=== PATIENT | male | born 1975 | race Caucasian/White ===

== ENCOUNTER 2019-09-19 03:56 | Observation (INO) | payer OTHER, SELFPAY ==
[2019-09-19] VITALS (8 sets, daily range): BP systolic 132–163; BP diastolic 91–108; PULSE 70–102; RESP 16–18; TEMP 36.3–36.4; O2SAT 97–99; BMI 27.6; BMI 27.0
--- NOTE | 2019-09-19 04:19 | CT_ITS ---
STUDY: CTA OF THE BRAIN REASON FOR EXAM: Male, 43 years old. LT EYE AND FACE PAIN X 2 DAYS,HEADACHE AND BLURRY VISION -- HX:SKIN CANCER RADIATION DOSAGE (If Supplied By Facility): CTDIvol = ( 25.48 ) mGy, DLP = ( 1261.86 ) mGycm TECHNIQUE: CT angiography was performed with a multi-detector CT scanner. Data acquisition was obtained from the skull base through the vertex following intravenous administration of ISOVUE 370 100ML. MIP images were reconstructed from the axial data set. Post-processing of the angiographic images was performed, with multiplanar reformation and 3D reconstruction. Should be noted that the contrast for the CT angiogram head is limited by the timing of the procedure. The contrast is primarily located within the vessels. Individualized dose optimization techniques were used for this CT. COMPARISON: None. FINDINGS: Normal bilateral petrous carotid arteries. Normal right cavernous carotid artery with a normal supraclinoid bifurcation. Normal left cavernous carotid artery with a normal supraclinoid bifurcation. Normal right A1 segments of the anterior cerebral artery. Normal left A1 segments of the anterior cerebral artery. Normal intact anterior communicating artery (ACOM). Normal bilateral A2 segments of the anterior cerebral arteries. Normal right M1 and M2 segments of the middle cerebral arteries, with a normal M1 bifurcation. 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 Normal left M1 and M2 segments of the middle cerebral arteries, with a normal M1 bifurcation. Normal right posterior communicating artery (PCOM). Normal left posterior communicating artery (PCOM). There is a small atretic right vertebral artery with a dominant left vertebral artery. Normal basilar artery with a normal basilar bifurcation. The visualized bilateral superior cerebellar (SCA) arteries are normal. Normal bilateral P1, P2 and visualized P3 segments of the posterior cerebral arteries. There is no demonstrated aneurysm of the [place]. There is a nonspecific rightward gaze with slight increase in the enhancement of the medial rectus muscles. This may be positional. The noncontrasted images demonstrate a minimal atrophy. There is no visualized focal area of edema or hemorrhage. There is a visualized centrally located focus of possible scarring or subcutaneous skin thickening in the frontal region. This is nonspecific. There is a left-sided maxillary mucosal retention cyst. There is a left-sided middle turbinate yaya bullosa. CT/CTA Head W/WO Contrast IMPRESSION: No visualized aneurysmal dilatation or area of stenosis. No evidence of blush of visualized enhancement. Duplicated or accessory right-sided MCA artery. There is nonspecific slight increased density of the medial rectus wall muscles with the eyes and a rightward gaze. No visualized enhancing retroconal or extraconal mass. Nonspecific focal thickening of the soft tissues of the frontal region midline. This may represent scarring and/or soft tissue variant., See image 24 axial views. Given the clinical history recommend consideration for follow-up MRI/MRA which may be helpful for further characterization of the optic canal and nerve bundles as well as the variant anatomy, when appropriate Electronically Signed: Ya Galloway MD at 5:47 EDT Tel , Service support ,
--- NOTE | 2019-09-19 04:22 | ED.DCSUM_ITS ---
History of Present Illness Chief Complaint: Other, Pain/Inj Informant: Patient Narrative: Patient stated approximately 4 days ago he woke up in the morning and had left- sided headache. It was in the temporal area. At the same time he had blurred vision in the left eye. He also stated senior living in his vision across the middle he has a black line that goes across. He stated that the headache is been intermittent and yesterday he did have a headache but the visual difficulty and blurred vision has persisted. He is never had this before and this eye. He has had migraines in the past with blurred vision but nothing that has lasted this long. In his opposite eye he had his tear duct removed as he had basal cell carcinoma with reconstruction done. However his left eye has always been good. He does not wear glasses or contacts. Normally he can see quite well out of his left eye. He denies any pain in the left eye. He also stated that the pain in his left taoism radiated down into his left cheek. He has not noticed any facial weakness or other stroke symptoms. He denies any pain in the back of his head. Current severity is moderate to severe. He can see well out of his right eye but not his left. He has been using Tylenol for the intermittent headache. No history of temporal arteritis. No injury to his face. Past Medical History - Allergies and Home Meds Allergies/Adverse Reactions: Allergies aspirin Adverse Reaction (Verified 09/19/19 04:01) Other Primary Care Physician: Esme Nunn DO [Primary Care Provider] - Prior records reviewed: Yes Past Medical History: - - Is a cell carcinoma forehead Surgical History: - - Basal cell carcinoma resection Smoking Status: Current every day smoker Alcohol: None Drugs: None Review of Systems General: Denies: Chills, Fever, Sweats Eyes: Reports: Visual changes - left, Blurred vision - left. Denies: Visual changes - bilaterally, Diplopia ENT: Denies: Rhinorrhea, Sore throat Cardiovascular: Denies: Chest pain, Palpitations Respiratory: Denies: Dyspnea, Cough, Dyspnea on exertion Gastrointestinal: Denies: Abdominal pain, Nausea, Vomiting, Diarrhea, Melena, Hematochezia Genitourinary: Denies: Dysuria, Hematuria, Frequency Musculoskeletal: Denies: Back pain, Extremity Pain Skin: Denies: Rash, Wounds Neurological: Denies: Headache, Weakness, Numbness Physical Exam Vital Signs/Narrative: Vital Signs Temp Pulse Resp BP Pulse Ox 09/19/19 03:58 97.4 F L 102 H 16 133/107 H 98 General: Well nourished, Well developed, No Acute Distress Head: Normocephalic, Atraumatic, - - No tenderness to his temporal artery. Negative for: Tenderness Eyes: Perrl, EOMI, - - Conjunctiva and sclera appear normal. Consensual reflexes ocular are normal. Attempts to see the back of his retina appear to show normal blood vessels. This is difficult however due to miosis. I do not appreciate a retinal detachment. Visual acuity is 20/25 bilateral and 20/25 on the right. It is 20/200 on the left.. Negative for: Pale conjunctiva, Scleral icterus ENT: Moist mucous membranes, No rhinorrhea Neck: Supple, Nontender Cardiovascular: Regular rate, Regular rhythm, No murmurs Respiratory: No distress, CTA bilaterally, Chest nontender Abdomen: Soft, Nontender, Nondistended, Normal bowel sounds Back: Nontender, Normal Inspection Extremities: Nontender, No edema Skin: Normal color, No rash Neurological: Alert, Oriented x3, Normal Strength, Normal Sensation, - - Patient's facial exam normal sensation and strength. No evidence of facial palsy.. Negative for: Cranial nerves II-XII grossly intact Psychological: Normal affect, Normal Mood Diagnostic/Tx/Re-eval - Medical Decision Making Established patient given IV fluids. Lab work and CT angio with and without contrast obtained of the head.. Lab work showed nothing remarkable. CBC BMP ESR all normal. CT Vanessa of the head with and without contrast showed nothing acute. 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 No evidence of stroke pattern. Patient was treated for possible complex migraine with Compazine Toradol and Benadryl patient was also placed on high flow oxygen as this may be a cluster headache wi th ocular symptoms. Patient's case was discussed with neurology. Neurology felt this could be optic neuritis versus complex migraine versus versus infectious ideology. I also instilled tetracaine in the left eye and use fluorescein with no uptake. No evidence of dendritic ulceration. Case was also discussed with ophthalmology Dr. Huynh. He felt he could see the patient in the office if discharged however neurology would like to do an inpatient work- up. Patient discussed with the hospitalist. We will do an inpatient MRI of the brain and orbits. Patient is in agreement with this. ED Disposition - Plan for ED Patient: Disposition: Acute Care [facility] Diagnosis: Blurred vision, left eye, Headache
[2019-09-19] MEDS: 0.9% Normal Saline 1,000 ML 1000 ML IV (04:40)
[2019-09-19 04:54] LABS: Absolute Lymphocyte Count 3.03 X10^3/uL (0.83-4.51); Absolute Neutrophil Count 4.8 X10^3/uL (2.0-7.7); Basophil# 0.05 X10^3/uL; Basophil% 0.5 % (0-1); Eosinophil# 0.41 X10^3/uL; Eosinophils% 4.4 % (0-5); Hematocrit 47.6 % (40-54); Hemoglobin 15.8 g/dL (13.0-16.5); Lymphocyte # 3.03 X10^3/ul (4.0); Lymphocyte % 32.6 % (19-41); Mean Corp Hgb Conc 33.2 g/dL (32-36); Mean Corpuscular Volume 99.4 fL (80-94); Mean Platelet Vol. 9.3 fl (6.2-12.0); Monocyte# 0.97 X10^3/uL; Monocyte% 10.4 % (0-10); NRBC Flagged by Analyzer 0 % (0-5); Neutrophil # 4.81 X10^3/uL (2.7-7.7); Neutrophil % 51.8 % (47-70); Platelet Count 227 K/mm3 (150-450); RBC Distribution Width CV 12.1 % (11.6-14.6); RBC Distribution Width SD 44.8 fl (35.1-43.9); Red Blood Count 4.79 M/mm3 (4.6-6.2); White Blood Count 9.3 K/mm3 (4.4-11.0)
[2019-09-19 05:09] LABS: Anion Gap 5 (5-15); BUN 21 mg/dL (7-18); BUN/Creat Ratio 22.9 RATIO (10-20); Calcium,Total 8.5 mg/dL (8.5-10.1); Chloride 108 mmol/L (98-107); Creatinine, Serum 0.92 mg/dL (0.70-1.30); EST Glomerular Filtration Rate 95 mL/min (>60); Est Glom Filt Rate - Afr Amer 115 mL/min (>60); Estimated Creatinine Clearance 113.64 ml/min; Glucose 144 mg/dL (74-106); Potassium 3.9 mmol/L (3.5-5.1); Sodium Level 141 mmol/L (136-145)
[2019-09-19 05:13] LABS: Erythrocyte Sedimentation Rate 4 mm/hr (0-15)
[2019-09-19] MEDS: Ketorolac 30 MG/ML Syringe IV (06:15)
[2019-09-19] MEDS: proCHLORPERazine 10 MG/2 ML Vial IV (06:58)
[2019-09-19] MEDS: DiphenhydrAMINE 50 MG/ML Syringe 25 MG IV (06:58)
--- NOTE | 2019-09-19 07:07 | NURSING ---
DR WHELAN FOR DR ZAVALA
--- NOTE | 2019-09-19 07:07 | PCM.HP.STD ---
Problem List (1) Headache Status: Acute Qualifiers: Headache type: unspecified Headache chronicity pattern: unspecified pattern Intractability: not intractable Qualified Code(s): R51 - Headache (2) Blurred vision, left eye Status: Acute (3) Hyperglycemia Status: Acute (4) History of migraine Status: Chronic (5) Cigar smoker Status: Chronic History of Present Illness Date of Admission: 09/19/19 Chief Complaint: Headache, L eye vision changes The patient is a 43 y/o M w/ PMHx: GERD, Hx Migraines, Hx basal cell carcinoma requiring R eye lacrimal duct resection and reconstruction who presents to the [facility] ED on 09/19/19 with history of onset ~ 4 days prior, following awakening, intermittent L sided headache behind his L eye and in the temporal region described as both throbbing and a stabbing rated 8 out of 10 in severity at its worse lasting sometimes hours to days although currently denies significant left-sided temporal headache at this time with associated ongoing L eye blurred vision and specifically noting a brown-black line going chcf horizontally across his vision as well as pain from the L temporal region down to his L cheek region. He notes normally appropriate vision. He denies having had these symptoms prior with migraine. He does currently admit to both light and sound sensitivity which he does state he does routinely have with his migraines. He states normally his symptoms for migraines are primarily right-sided. 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 ED physician consulted [facility] Dr. Hines who recommended admission with IAN, serum KEATON, ESR, Lyme Sheri, c-ANCA, p-ANCA, RPR, HIV, TSH, MRI of the brain with and without contrast, MRI of the orbits with fat suppression with and without and if imaging concerning for herpes ophthalmicus initiate acyclovir, if work-up consistent with optic neuritis encourage continued Solu-Medrol therapy with transition to oral prednisone therapy with a total of 1 g daily x3 days followed by a 10-day oral prednisone taper and also discussed case with Dr. Huynh (ophthalmology) who noted intention for follow-up outpatient at discharge. Neurology felt that patient's presentation was more consistent with a possible optic neuritis versus a complex migraine. In the ED prior to admission ED physician also instilled tetracaine into the left eye and visualized the eye with fluorescein with no uptake identified and no evidence of any dendritic ulcerations. Past Medical History Past Medical History (Chronic Problems): Chronic Problems History of migraine (Chronic) Cigar smoker (Chronic) Allergies aspirin Adverse Reaction (Verified 09/19/19 04:01) Other Home Medications: Ambulatory Orders Medication Instructions Recorded NK 09/19/19 Surgical History: - - Basal cell carcinoma resection face with right lacrimal duct resection concurrently. Psychiatric History: No pertinent psych hx Lives: Spouse/ Significant Other Smoking Status: Current every day smoker - Patient with ongoing 1 to 2 cigar smoking daily. Tobacco Use: Cigars Alcohol: None Drugs: None - *Family History Maternal History Items: - - Patient denies any market maternal or paternal family history including heart disease, diabetes or cancer. Paternal History Items: - - Patient denies any market maternal or paternal family history including heart disease, diabetes or cancer. Review of Systems Constitutional: Reports: Anorexia, Malaise, Weakness, Fatigue. Denies: Chills, Fever, Weight Change Eyes: Reports: Blurred vision HEENT: Reports: Head Aches. Denies: Sinus Congestion, Sinus Drainage Cardiovascular: Denies: Chest Pain, Chest Pressure, Chest Tightness, Light Headedness, Orthopnea, Palpitations, Syncope Respiratory: Denies: Cough, Shortness of Breath, Shortness of breath at rest, Shortness of breath upon exertion, Sputum production Gastrointestinal: Denies: Abdominal Pain, Diarrhea, Nausea, Vomiting Genitourinary: Denies: Dysuria Musculoskeletal: Denies: Joint Pain, Joint Tenderness, Muscle pain Skin: Denies: Rash, Wounds Neurological: Reports: Blurred vision. Denies: Focal weakness, Numbness, Tingling Psychiatric: Denies: Anxiety, Depression, Homicidal Ideations, Suicidal Ideations Hematologic/ Lymphatic: Denies: Easy Bruising, Easy Bleeding VTE Information - Inpt Only VTE Present on Admission: No VTE Mechan Device Prophylaxis: SCD's VTE Pharm Prophylaxis ordered?: Yes Patient Problems: Active and Suspected Problems Blurred vision, left eye (Acute) Headache (Acute) Hyperglycemia (Acute) Subjective: Patient seated upright in the ED bed, fatigued appearance, no acute distress, denies any current migraine but noticed ongoing left eye vision blurriness and horizontal line across his field of vision. Objective: Physical Examination: General: awake, alert, oriented x 3 and cooperative, seated upright in the ED bed in no apparent distress. Skin: normal color, turgor, no icterus, cyanosis. HEENT: AT/NC, EOMI, PERRLA, peripheral painting of vision appear intact, left eye vision deficit reporting blurry vision with visual acuity 20/25 bilateral and 20/25 on the right and 20/20 on the left, mildly dry MM, no carotid bruits or JVD noted. Lungs: CTA bilaterally, moderate effort, mild decrease BL bases, no rales, ronchi or wheezing. Heart: Regular rate and rhythm; no gallop, rub audible. Abdomen: soft, overweight, NTTP, ND, normal BS, no HSM. Extremities: no cyanosis, clubbing, or edema. Neurological: patient awake, alert, oriented as noted; cognitive function appears baseline intact; pupils equally reactive to light and accomodation; cranial nerves II-XII grossly normal except noted vision deficits, moving all 4 extremities, no focal deficits, strength preserved, normal kebshw-nd-swel and [id number], negative Babinski. Psychiatric: affect appears normal, no acute evidence of depressive or anxiety feelings. - Physical Exam Vitals/I&O's: Vital Signs Temp Pulse Resp BP Pulse Ox 97.4 F L 70 16 139/101 H 99 09/19/19 03:58 09/19/19 06:57 09/19/19 06:57 09/19/19 06:57 09/19/19 06:57 Oxygen Delivery Method Room Air Weight: 203 lb 7.787 oz Body Mass Index (BMI) 27.6 Intake and Output for Last 24 Hours 09/17/19 09/18/19 09/19/19 23:59 23:59 23:59 Intake Total 1000 / 1000 Balance 1000 / 1000 Laboratory Results 09/19/19 04:40: WBC 9.3, RBC 4.79, Hgb 15.8, Hct 47.6, MCV 99.4 H, MCH 33.0 H, MCHC 33.2, RDW Std Deviation 44.8 H, RDW Coeff of Baakri 12.1, Plt Count 227, MPV 9.3, Immature Gran % (Auto) 0.300, Neut % (Auto) 51.8, Lymph % (Auto) 32.6, [place] % (Auto) 10.4 H, Eos % (Auto) 4.4, Baso % (Auto) 0.5, Absolute Neuts (auto) 4.8, Absolute Lymphs (auto) 3.03, Nucleated RBC % 0, ESR 4 09/19/19 04:40: Sodium 141, Potassium 3.9, Chloride 108 H, Carbon Dioxide 28.0, Anion Gap 5, BUN 21 H, Creatinine 0.92, Estim Creat Clear Calc 113.64, Est GFR (MDRD) Af Amer 115, Est GFR (MDRD) Non-Af 95, BUN/Creatinine Ratio 22.9 H, Glucose 144 H, Calcium 8.5 Assessment/Plan All Active Problems Blurred vision, left eye (Acute) Headache (Acute) Hyperglycemia (Acute) The patient is a 43 y/o M w/ PMHx: GERD, Hx Migraines, Hx basal cell carcinoma requiring R eye lacrimal duct resection and reconstruction who presents to the [facility] ED on 09/19/19 with history of onset ~ 4 days prior, following awakening, intermittent L sided headache behind his L eye and in the temporal region described as both throbbing and a stabbing rated 8 out of 10 in severity at its worse lasting sometimes hours to days although currently denies significant left-sided temporal headache at this time with associated ongoing L eye blurred vision and specifically noting a brown-black line going chcf horizontally across his vision as well as pain from the L temporal region down to his L cheek region. He notes normally appropriate vision. 1. Left eye vision changes, headache concerning for possible Acute optic neuritis versus Acute complex migraine with history of migraines, less likely acute CVA: Will admit to PCU, MRI of the brain with and without contrast, MRI of the orbits with fat suppression with and without, will request ECHO however if no evidence CVA will d/c, per Neurology request will obtain IAN, serum KEATON, ESR (will obtain CRP also), Lyme Sheri, c-ANCA, p-ANCA, RPR, HIV, TSH, if imaging concerning for herpes ophthalmicus initiate acyclovir, given importance of steroid initiation if optic neuritis and concern for complex migraine, will start solumedrol (if work-up consistent with optic neuritis will plan solumedrol 1 g daily x3 days followed by a 10-day oral prednisone taper), would plan Dr. Huynh (ophthalmology) outpatient follow-up at discharge if appropriate. Given concern for possible migrainous etiology will hold narcotic therapy give this may exacerbate migraine, initiate IV VPA 500mg Q6 hours, IV Toradol 30mg q 8 hours x 5 doses and PO Neurontin 100mg TID with meals. Given MRI imaging pending although lower suspicion for acute CVA in interim we will continue PT/OT/Speech/Nutrition evaluation per protocol, allow permissive HTN, maintain on plavix, add statin w/ AM FLP, fall precautions. Will obtain hemoglobin A1c, magnesium level, TSH level. 2. Hyperglycemia: Admission glucose 144, hemoglobin A1c pending as noted. 3. Tobacco Abuse: Encouraged cessation, inpatient consultation per RT, NR if desired. 4. GERD: We will maintain on famotidine. 5. Hx basal cell carcinoma: s/p R eye lacrimal duct resection and reconstruction, noted to have bone performed at [facility], [facility]. 6. DVT prophylaxis: SCDs, Lovenox. Inpatient E&M: 01304 Init Hosp L3
--- NOTE | 2019-09-19 07:16 | NURSING ---
PCU LT OCULAR BLURRED VISION, LT HEADACHE WHITE
--- NOTE | 2019-09-19 09:12 | ECHOD_ITS ---
Reason For Study: TIA/CVA Procedure This was a 2D Doppler, Color Flow transthoracic echocardiogram. Exam performed portable in patient room. Left Ventricle Normal LV size. Left ventricular systolic function is normal. The estimated ejection fraction is 55 %. Stage 1 diastolic dysfunction. No regional wall motion abnormalities noted. Right Ventricle Normal RV size. Normal systolic function. Atria Normal left atrium. Normal right atrium. Bubble contrast study negative for right to left interatrial shunt. Tricuspid Valve Normal tricuspid valve. Mild tricuspid valve insufficiency. Great Vessels Normal aortic root. The pulmonary artery is normal size. Normal inferior vena cava. Pericardium/Pleural No pericardial effusion. Medication Performed a rapid injection of agitated mix of 9 cc saline and 1cc air to assess for atrial septal defect. MMode/2D Measurements & Calculations LVIDd: 5.0 cm IVSd: 0.95 cm Ao root diam: 3.1 cm LVIDs: 3.3 cm LVPWd: 0.98 cm RVDd: 2.6 cm FS: 34.2 % LAV(MOD-bp): 57.3 ml LA dimension(2D): 3.2 cm LA A4 area: 17.1 cm2 LAV(MOD-bp) Indexed: 26.9 ml/m2 LAV(MOD-sp2): 53.4 ml LAV(MOD-sp4): 52.2 ml RA A4 area: 16.4 cm2 Time Measurements MV dec time: 0.16 sec Doppler Measurements & Calculations MV E max kyle: 64.8 cm/sec Lat Peak E' Kyle: 7.3 cm/sec Med Peak E' Kyle: 5.2 cm/sec MV A max kyle: 74.1 cm/sec E/E' lat: 8.9 E/E' med: 12.6 MV E/A: 0.88 Ao V2 max: 98.3 cm/sec LV V1 max: 76.9 cm/sec PA V2 max: 74.9 cm/sec Ao max P.9 mmHg LV V1 max P.4 mmHg TR max kyle: 194.8 cm/sec TR max P.2 mmHg Interpretation Summary Normal LV size. Left ventricular systolic function is normal. The estimated ejection fraction is 55 %. Stage 1 diastolic dysfunction. Bubble contrast study negative for right to left interatrial shunt. Mild tricuspid valve insufficiency. Ordering Physician: Chastity Alanis Referring Physician: Ofelia Nunn Performed By: Petra Dominique RDCS, RVT
--- NOTE | 2019-09-19 09:12 | MRI_ITS ---
STUDY: MRI ORBITS WITH AND WITHOUT CONTRAST REASON FOR EXAM: Male, 43 years old. left vision change, johnson x 3 days, ongoing TECHNIQUE: Standardized fat and water weighted pulse sequences were obtained in all 3 orthogonal planes, pre-and post contrast administration. IV dotarem 18ml was administered for the contrast portion of the examination. COMPARISON: None. FINDINGS: Normal bilateral globes. Normal bilateral optic nerve sheath complexes and optic nerves. Normal bilateral intraconal and extraconal spaces. Normal bilateral extraocular muscles. Normal optic chiasm and post-chiasmatic tracts. Normal sella turcica, pituitary gland, infundibular stalk, and hypothalamus. Normal bilateral cavernous sinuses. Normal tectal plate and pineal gland. Normal flow voids within the major intracranial circulation suggesting patency by spin echo criteria. Normal size of the ventricles and extra-axial spaces for the patient''s age. Normal white matter tracts of the supratentorial brain. Normal bilateral basal ganglia. Normal thalami. There is no extra-axial fluid accumulation. Normal midbrain, jaqueline and medulla. Normal cerebellum. Normal basal cisterns. There is arthritic change of the upper cervical spine with canal stenosis at C3-4. There is mucosal thickening of the left maxillary sinus. Nasal septum deviates to the right. IMPRESSION: Normal enhanced and unenhanced MRI of the orbits. No mass or abnormal enhancement. Extraocular musculature is symmetric. Electronically Signed: Francis Madrid MD at 13:31 EDT , Service support , STUDY: MRI BRAIN WITH AND WITHOUT CONTRAST REASON FOR EXAM: Male, 43 years old. left vision change, johnson x 3 days, ongoing TECHNIQUE: Standardized multiplanar fat and water weighted pulse sequences were obtained. IV dotarem 18ml was administered for the contrast portion of the examination. COMPARISON: CT September 19, 2019 from earlier the same day FINDINGS: Normal size of the ventricles and extra-axial spaces for the patient''s age. There are a limited number of small white matter hyperintensities, distributed throughout the deep white matter tracts of the cerebral hemispheres, consistent with mild chronic white matter ischemic changes. There is no evidence for recent intracranial ischemia or other cause of cytotoxic edema on diffusion weighted imaging (DWI). Normal T2* images of the brain without demonstrated susceptibility artifact. There is no demonstrated hemosiderin stain. Normal bilateral basal ganglia. Normal thalami. There is no extra-axial fluid accumulation. Normal flow voids within the major intracranial circulation suggesting patency by spin echo criteria. Normal venous enhancement. There is no enhancing intra-axial or extra-axial abnormality. Normal sella turcica, pituitary gland, infundibular stalk, optic chiasm and hypothalamus. Normal tectal plate and pineal gland. Normal midbrain, jaqueline and medulla. Normal cerebellum. Normal basal cisterns. Normal bilateral temporal bones. Normal bilateral internal auditory canals. No demonstrated orbital abnormality, within the constraints of a routine brain study. There is mucoperiosteal inflammatory disease of the paranasal sinuses consistent with mild chronic sinusitis. Normal calvarium and skull base. Normal visualized soft tissue structures. Normal visualized upper cervical spine. MRI/Brain W/WO Contrast IMPRESSION: No acute intracranial abnormalities. Mild white matter signal alteration. No hemorrhage or cortical infarct. Electronically Signed: Francis Madrid MD at 13:28 EDT , Service support ,
[2019-09-19 09:41] LABS: Erythrocyte Sedimentation Rate 6 mm/hr (0-15)
[2019-09-19 10:03] LABS: Hemoglobin A1c 6.2 % (3.8-5.6)
--- NOTE | 2019-09-19 11:00 | NURSING ---
Pt off floor for testing. Unable to complete tele strip at this time.
[2019-09-19 11:11] LABS: CRP 4.78 mg/L (0.0-3.0); Magnesium 2.3 mg/dL (1.6-2.6); Thyroid Stim Hormone (TSH) 1.27 uIU/mL (0.358-3.74)
[2019-09-19] MEDS: 0.9% Normal Saline 1,000 ML 125 ML IV (12:22)
[2019-09-19] MEDS: Famotidine 20 MG Tablet PO (12:27)
[2019-09-19] MEDS: Clopidogrel Bisulfate 75 MG Tablet PO (12:27)
[2019-09-19] MEDS: Gabapentin 100 MG Capsule PO (12:27)
[2019-09-19] MEDS: Enoxaparin 40 MG/0.4 ML Syringe SC (12:28)
[2019-09-19] MEDS: MethylPREDNISolone 125 MG/2 ML Vial 250 MG IV (12:33)
--- NOTE | 2019-09-19 13:30 | CASEMGMT ---
JAYDA ESPINO assessment: Face to Face with patient for initial transition planning/care coordination assessment. JAYDA ESPINO introduced self and role at [facility], pt voices understanding and consents to assessment at this time. Pt is sitting up in bed in no distress at this time. Pt is A/Ox4 at this time and answers all questions appropriately at this time. Care providers, pharmacy, and demographics verified at this time. Presentation: Left eye and facial pain for several days Admitting dx: Optic neuritis vs complex migraine PCP: [facility] Specialists: Pt states no current specialists. Preferred Pharmacy: [facility] Insurance: [employer] Prescription Benefit: [employer] Living Will/HPOA: Pt states does not have LW/HPOA and declines info at this time. LNOK: Andre Vila, Living Arrangements: Pt states lives with in2 story home and states no concerns at home at this time. Pt states is independent with ADL's. Transportation: Pt states drives self and states no transportation concerns at this time. DME/HHC: Pt states no current DME and denies need for any at this time. Pt states no hx of HHC or SNF in the past. Pt states no concerns with going home at time of discharge. 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 Pt states does smoke 1-2cigars daily and does not drink ETOH. Pt states no further questions/concerns/needs at this time. CM to follow for any further discharge planning/needs. Advised pt to ask for CM if any further questions/concerns/needs arise, voices understanding. Pt Goal: Home Plan: [place] JAYDA ESPINO
--- NOTE | 2019-09-19 15:39 | PCM.DC ---
- Discharge Diagnoses Current Active Problems: Current Active and Chronic Problems 1. Left eye vision changes, headache suspected secondary to Acute Intractable Complex Migraine, RULED out optic neuritis and acute CVA 2. Hyperglycemia c/w pre-diabetes (6.2%) 3. Tobacco Abuse 4. GERD 5. Hx basal cell carcinoma You will use the following diet at home:: Cardiac Your food should be the consistency of: Regular Your liquids should be the consistency of: Regular/Thin Discharge Activity: - - Please follow-up with ophthalmology as well as neurology and primary care physician prior to resumption of any aggressive activities. Call your doctor if you observe: Fever of 101 or Higher, Inability to urinate, Inability to have a bowel movement, Shortness of breath, Dizziness, Fainting spells, Chest pain, Uncontrolled pain, - - Worsening vision changes or recurrent severe intractable migraine. Instructions: What Are Migraine and Tension Headaches?, Preventing Migraine Headaches: Triggers, Migraine Headache: Stages and Treatment, Preventing Migraine Headaches: Medications and Lifestyle Changes Additional Instructions: During the admission MRI of the brain as well as the orbits was performed with and without contrast to assess for possible etiology of vision changes and headaches with no acute findings demonstrated. We do feel that your presentation is likely consistent with an intractable migraine which improved with regimen. Please continue Depacon, Medrol Dosepak and low-dose twice daily Neurontin to assist with ongoing migraine resolution. Please follow-up with neurology as directed. Please follow-up with ophthalmology on Saturday given for outpatient evaluation as directed per ophthalmology per ED discussion upon presentation. If you worsen or vision changes please immediately call the [facility] and request an emergency evaluation. During admission you had elevated blood sugars and a hemoglobin A1c was checked and noted to be 6.2%. It is very important to continue to evaluate this to assure you do not develop diabetes. Pending Tests on Discharge: IAN, serum KEATON, Lyme Sheri, c-ANCA, p-ANCA, RPR, HIV per Neurology direction. Allergies/Adverse Reactions: Allergies aspirin Adverse Reaction (Verified 09/19/19 04:01) Other Medications to take at Discharge Divalproex Sodium [Depakote ER] 500 mg PO QHS #30 tab.er.24h 09/19/19 Gabapentin [Neurontin] 100 mg PO BID #60 cap 09/19/19 MethylPREDNISolone DosePak [Medrol DosePak] 4 mg PO UD #1 box 09/19/19 The following prescriptions were given: Divalproex Sodium [Depakote ER] 500 mg PO QHS #30 tab.er.24h Transmission Status: Pending to [facility]/pharmacy #[id number] MethylPREDNISolone DosePak [Medrol DosePak] 4 mg PO UD #1 box Transmission Status: Pending to [facility]/pharmacy #[id number] Gabapentin [Neurontin] 100 mg PO BID #60 cap Transmission Status: Pending to [facility]/pharmacy #[id number] Primary Care Physician: Esme Nunn DO [Primary Care Provider] - Please follow up with your Primary Care Physician in: Follow-up within 3-5 days Test Results: Test results from this visit will be discussed in further detail at your follow-up appointment, if applicable. Please Follow Up With: Gilmar Shipley MD When: Follow-up 1st open visit for migraine follow-up evaluation. Please Follow Up With: Geo Block MD When: Follow-up this coming Saturday for evaluation of L eye. Proposed Discharge Date: 09/19/19 - \
--- NOTE | 2019-09-19 15:45 | PCM.DC.SUM ---
Discharge Date and Diagnosis - Problem List Patient Problems: Active and Suspected Problems Blurred vision, left eye (Acute) Headache (Acute) Hyperglycemia (Acute) Date of Admission: 09/19/19 Date of Discharge: 09/19/19 - Primary Discharge Diagnosis Acute Problems: Active Problems 1. Left eye vision changes, headache suspected secondary to Acute Intractable Complex Migraine, RULED out optic neuritis and acute CVA 2. Hyperglycemia c/w pre-diabetes (6.2%) 3. Tobacco Abuse 4. GERD 5. Hx basal cell carcinoma - Secondary Discharge Diagnosis Chronic Problems: Chronic Problems History of migraine (Chronic) Cigar smoker (Chronic) History basal cell carcinoma (Chronic) Hospital Course and Treatment Imaging Results: 09/19/19 09:12 Echo Complete [ECHO] Routine Brain W/WO Contrast [MRI] [facility]. Operations: None Procedures: 2-D Echocardiogram, EKG, - - MRI brain without and without contrast as well as MRI orbits with and without contrast. 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 He notes normally appropriate vision. He denies having had these symptoms prior with migraine. He does currently admit to both light and sound sensitivity which he does state he does routinely have with his migraines. He states normally his symptoms for migraines are primarily right-sided. 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 ED physician consulted [facility] Dr. Hines and also discussed case with Dr. Huynh (ophthalmology). In the ED prior to admission ED physician also instilled tetracaine into the left eye and visualized the eye with fluorescein with no uptake identified and no evidence of any dendritic ulcerations. The patient was admitted to PCU, MRI of the brain with and without contrast with no acute intracranial abnormality with mild white matter signal alteration with no hemorrhage or cortical infarction and MRI of the orbits with fat suppression with and without contrast noted to be normal enhanced and unenhanced MRI of the orbits with no mass or abnormal enhancement and symmetric extraocular musculature, echocardiogram obtained with normal LV size, LV systolic function normal, EF 55%, stage I diastolic dysfunction, bubble contrast study negative for right to left interatrial shunt, mild TBI, per Neurology requested IAN, serum KEATON, ESR (will obtain CRP also), Lyme Sheri, c-ANCA, p-ANCA, RPR, HIV, TSH, given importance of steroid initiation if optic neuritis and concern for complex migraine, patient was started on solumedrol, IV VPA 500mg Q6 hours, IV Toradol 30mg q 8 hours x 5 doses and PO Neurontin 100mg TID with meals. Given results of MRI presentation more suspicious for intractable migraine however at approximately 3:50 PM in the afternoon on day of presentation patient noted resolution of his migraine however continued to have a line across his vision although blurry vision had been improving and refused to stay any further despite concerns and discussions. Patient was willing to wait for instructions and medications to be electronically sent. Patient discharged on Medrol Dosepak, Depacon 500 mg p.o. nightly, low-dose twice daily gabapentin with requested follow-up with ophthalmology, PCP as well as neurology. Noted to patient's per staff that labs would be likely pending up to approximately 1 week given significant request as noted per neurology but these would be resulted by the time of his upcoming appointment. Patient therefore discharged AGAINST MEDICAL ADVICE with strong encouragement to follow-up and continue regimen upon discharge. Patient Problems: Active and Suspected Problems Blurred vision, left eye (Acute) Headache (Acute) Hyperglycemia (Acute) - Physical Exam Vitals/I&O's: Vital Signs Temp Pulse Resp BP Pulse Ox 97.6 F L 85 18 163/108 H 98 09/19/19 15:15 09/19/19 15:15 09/19/19 15:15 09/19/19 15:15 09/19/19 15:15 Oxygen Delivery Method Room Air Weight: 199 lb 1.239 oz Body Mass Index (BMI) 27.0 Intake and Output for Last 24 Hours 09/17/19 09/18/19 09/19/19 23:59 23:59 23:59 Intake Total 1204.58 / 1204.58 Balance 1204.58 / 1204.58 Laboratory Results 09/19/19 04:40: WBC 9.3, RBC 4.79, Hgb 15.8, Hct 47.6, MCV 99.4 H, MCH 33.0 H, MCHC 33.2, RDW Std Deviation 44.8 H, RDW Coeff of Bakari 12.1, Plt Count 227, MPV 9.3, Immature Gran % (Auto) 0.300, Neut % (Auto) 51.8, Lymph % (Auto) 32.6, [place] % (Auto) 10.4 H, Eos % (Auto) 4.4, Baso % (Auto) 0.5, Absolute Neuts (auto) 4.8, Absolute Lymphs (auto) 3.03, Nucleated RBC % 0, ESR 4 09/19/19 04:40: Sodium 141, Potassium 3.9, Chloride 108 H, Carbon Dioxide 28.0, Anion Gap 5, BUN 21 H, Creatinine 0.92, Estim Creat Clear Calc 113.64, Est GFR (MDRD) Af Amer 115, Est GFR (MDRD) Non-Af 95, BUN/Creatinine Ratio 22.9 H, Glucose 144 H, Calcium 8.5 09/19/19 04:40: Hemoglobin A1c 6.2 H 09/19/19 04:40: ESR 6 09/19/19 04:40: Magnesium 2.3, C-React Prot Ext Range 4.78 H, TSH 1.27 09/19/19 12:53: IAN Screen Pending, JULIANNA-1 Antibody Pending, SS-A/Ro IgG Antibody Pending, SS-B/La IgG Antibody Pending, Sm (Lara) Antibody Pending, EXCELSIOR MACHINE OPERATOR Antibody Pending, Scl-70 Scleroderma Ab Pending, Double Strand DNA Ab Pending, Centromere B Antibody Pending 09/19/19 12:53: Angiotensin Convert Enz Pending, c-ANCA Antibody Pending, p-ANCA Antibody Pending 09/19/19 12:53: HIV 1&2 Antibody Pending 09/19/19 12:53: RPR Pending 09/19/19 12:53: Miscellaneous Test Pending Current Medications Acetaminophen (Tylenol) 650 mg PO Q6H PRN PRN PRN Reason: Pain Score 1-10/Temp > 100.7 F Al Hydroxide/Mg Hydroxide (Mylanta Ii) 30 ml PO Q6H PRN PRN PRN Reason: Gastric Burning Albuterol Sulfate (Ventolin Aerosols) 2.5 mg INHALATION Q2H PRN PRN PRN Reason: Dyspnea, wheezing Atorvastatin Calcium (Lipitor) 80 mg PO QHS [facility] Clopidogrel Bisulfate (Plavix) 75 mg PO DAILY [facility] Last Admin: 09/19/19 12:27 Dose: 75 mg Documented by: Dextrose (D50w Syringe) 0 gm IV X1 PRN; Protocol PRN Reason: Hypoglycemia Enoxaparin Sodium (Lovenox) 40 mg SC DAILY [facility] Last Admin: 09/19/19 12:28 Dose: 40 mg Documented by: Famotidine (Pepcid) 20 mg PO BID [facility] Last Admin: 09/19/19 12:27 Dose: 20 mg Documented by: Gabapentin (Neurontin) 100 mg PO TIDCM [facility] Last Admin: 09/19/19 14:07 Dose: Not Given Documented by: Glucagon () 1 mg IM .X1 PRN PRN Reason: Hypoglycemia Guaifenesin (Robitussin) 20 ml PO Q4H PRN PRN PRN Reason: COUGH Hydralazine HCl (Apresoline Iv) 10 mg IV Q4H PRN PRN PRN Reason: SBP > 160 Sodium Chloride () 1,000 mls @ 125 mls/hr IV .Q8H [facility] Last Infusion: 09/19/19 13:30 Dose: 125 mls/hr Documented by: Valproic Acid 500 mg/ Dextrose 55 mls @ 50 mls/hr IV Q6 [facility] Last Infusion: 09/19/19 13:30 Dose: Infused Documented by: Ketorolac Tromethamine (Toradol (Bkc)) 30 mg IV Q8 [facility] Stop: 09/20/19 22:01 Last Admin: 09/19/19 15:25 Dose: Not Given Documented by: Magnesium Hydroxide (Milk Of Magnesia) 30 ml PO DAILY PRN PRN PRN Reason: Constipation Methylprednisolone (Solu-Medrol) 250 mg IV Q6 [facility] Last Admin: 09/19/19 12:33 Dose: 250 mg Documented by: Ondansetron HCl (Zofran) 4 mg IV Q8H PRN PRN PRN Reason: NAUSEA/VOMITING Prochlorperazine Edisylate (Compazine Iv) 5 mg IV Q4H PRN PRN PRN Reason: Breakthrough Nausea/Vomiting Psyllium Hydrophilic Mucilloid (Metamucil) 1 packet PO DAILY PRN PRN PRN Reason: Constipation Senna/Docusate Sodium (Senokot-S, Yaa-Colace) 2 tablet PO BID PRN PRN PRN Reason: Constipation Sodium Chloride () 10 - 40 ml IV UD PRN PRN Reason: SALINE FLUSH Temazepam (Restoril) 15 mg PO QHS PRN PRN PRN Reason: INSOMNIA Throat Lozenges (Cepacol Sore Throat Lozenge) 1 lozenge MUCOUS MEM Q2H PRN PRN PRN Reason: SORE THROAT Discharge Activity: - - Please follow-up with ophthalmology as well as neurology and primary care physician prior to resumption of any aggressive activities. Call your doctor if you observe: Fever of 101 or Higher, Inability to urinate, Inability to have a bowel movement, Shortness of breath, Dizziness, Fainting spells, Chest pain, Uncontrolled pain, - - Worsening vision changes or recurrent severe intractable migraine. Home Medications: Medications to take at Discharge Divalproex Sodium [Depakote ER] 500 mg PO QHS #30 tab.er.24h 09/19/19 Gabapentin [Neurontin] 100 mg PO BID #60 cap 09/19/19 MethylPREDNISolone DosePak [Medrol DosePak] 4 mg PO UD #1 box 09/19/19 Following Prescrptions Were Given to Patient: Divalproex Sodium [Depakote ER] 500 mg PO QHS #30 tab.er.24h Transmission Status: Pending to [facility]/pharmacy #[id number] MethylPREDNISolone DosePak [Medrol DosePak] 4 mg PO UD #1 box Transmission Status: Pending to [facility]/pharmacy #[id number] Gabapentin [Neurontin] 100 mg PO BID #60 cap Transmission Status: Pending to [facility]/pharmacy #[id number] Primary Care Physician: Esme Nunn, [Primary Care Provider] - Please follow up with your Primary Care Physician in: Follow-up within 3-5 days Please Follow Up With: Gilmar Shipley MD When: Follow-up 1st open visit for migraine follow-up evaluation. Please Follow Up With: Geo Block MD When: Follow-up this coming Saturday for evaluation of L eye. Patient Instructions: What Are Migraine and Tension Headaches?, Migraine Headache: Stages and Treatment, Preventing Migraine Headaches: Triggers, Preventing Migraine Headaches: Medications and Lifestyle Changes Disposition: Home Minutes spent on discharge:: 40 Patient Condition:: Stable Medical Necessity - Tobacco Use Smoking Status: Current every day smoker Tobacco Use: Cigars Meaningful Use Info Meaningful Use Diagnoses (Choose all that apply): None applicable OBSV E&M: 22931 Observ/hosp same date L3
[2019-09-21 09:35] LABS: HIV - WCH Non-Reactive (Nonreactive)
[2019-09-24 03:36] LABS: Rapid Plasmin Reagin (RPR) NONREACTIVE (NONREACTIVE)
[2019-09-24 12:01] LABS: ANTINUCLEAR ANTIBODIES DIRECT Negative (Negative)
[2019-09-24 16:07] LABS: Cytoplasmic Ab (C-ANCA) <1:20 titer (Neg:<1:20)
[2019-09-24 21:30] LABS: Angiotensin Convert Enzyme 57 U/L (14-82); Perinuclear Ab (P-ANCA) <1:20 titer (Neg:<1:20)
== END 2019-09-19 16:42 | disposition home or self-care (01) ==
LOC: ED 07:14 → PCU 09-22 08:12
PROVIDERS: Admitting Provider Family Medicine; Emergency Provider Emergency Medicine; PCP Family Medicine; Visit Provider Family Medicine
DX: G43.909 Migraine, unspecified, not intractable, without status migrainosus (principal); R73.03 Prediabetes; R73.9 Hyperglycemia, unspecified; K21.9 Gastro-esophageal reflux disease without esophagitis; F17.290 Nicotine dependence, other tobacco product, uncomplicated; Z85.828 Personal history of other malignant neoplasm of skin; I07.1 Rheumatic tricuspid insufficiency
CPT/HCPCS: 70496; 70553; 80048; 82164; 83036; 83735; 84443; 85025; 85652; 86038; 86140; 86225; 86235; 86256; 86592; 86703; 93306; 94762; 96361; 96365; 96372; 96375; 99218; 99251; 99283; 99406; A9575; J7030; Q9967; A4216; G0378; G0463